=== PATIENT | male | born 1950 | race Caucasian/White ===

== ENCOUNTER 2018-06-16 06:11 | Inpatient (IN) | payer MEDICARE, OTHER ==
[2018-05-28 09:04] LABS: ABSOLUTE EOSINOPHILS 0.1 thou/uL (0.0-0.7); ABSOLUTE LYMPHOCYTES 1.4 thou/uL (0.8-5.3); ABSOLUTE MONOCYTES 0.4 thou/uL (0.0-1.2); ABSOLUTE NEUTROPHILS 2.2 thou/uL (1.6-8.1); BASOPHILS 0.9 %; EOSINOPHILS 1.6 %; HEMATOCRIT 41.1 % (42.0-52.0); HEMOGLOBIN 13.9 gm/dL (14.0-18.0); LYMPHOCYTES 33.6 %; MCH 29.8 pg (26.0-34.0); MCHC 33.8 g/dL (28.0-37.0); MCV 88.2 fL (80.0-100.0); MONOCYTES 9.1 %; MPV 6.9 fl. (7.2-11.1); NUCLEATED RBCS 0 /100WBC; PLATELET COUNT* 225 thou/uL (150-400); POLYS 54.8 %; RBC 4.66 mil/uL (4.50-6.00); RDW-CV 14.3 % (10.5-14.5); WBC 4.1 thou/uL (4.0-11.0)
[2018-05-28 09:12] LABS: APTT 26.7 Seconds (25.0-31.3); PROTIME 10.2 Seconds (9.20-11.50)
[2018-05-28 10:05] LABS: ALBUMIN 3.7 g/dL (3.4-5.0); CALCIUM 9.3 mg/dL (8.5-10.1); CREATININE 0.8 mg/dL (0.6-1.3); POTASSIUM 4.1 mmol/L (3.5-5.1); TOTAL BILIRUBIN 0.4 mg/dL (<0.1-1.0); TOTAL PROTEIN 7.3 g/dL (6.4-8.2)
[2018-05-28 11:14] LABS: ESR (SEDRATE) 4 mm/hr (0-20)
--- NOTE | 2018-05-28 16:41 | EKG ---
[place] [address] ELECTROCARDIOGRAM REPORT Name: PETE MAO Room: [facility].#: [id number] Admission: Attend Phys: Angel Dickerson DO Discharge: Date of : 50 Report #: [id number] THIS REPORT FOR: //name// [facility] Test Date: 2018-05-28 Test Time: 09:18:48 Pat Name: PETE MAO Department: Room: Gender: M Genetics Nurse: : 1950 Requested By: Angel Dickerson Order Number: [id number] Reading MD: Hiro Thomson Measurements Intervals [place] Rate: 65 P: 48 NC: 177 QRS: 47 QRSD: 96 T: 48 QT: 387 QTc: 403 Interpretive Statements Sinus rhythm Compared to ECG 05/22/2016 08:39:13 No significant changes Electronically Signed On 05-28-2018 16:41:13 HOSPITAL STAFF PHARMACIST by Hiro Thomson [email or web address] <ELECTRONICALLY SIGNED> By: Hiro Thomson MD, [facility] 05/28/18 1641 0918 09 Hiro Thomson MD, FACC /EPI
[2018-05-28 21:13] LABS: GLYCOHEMOGLOBIN (HGB A1C) 5.7 % (4.8-5.6)
[~2018-06-16] VITALS: Ht 172.7 cm; Wt 104.3 kg
--- NOTE | ~2018-06-16 | OP ---
[address] [address] OPERATIVE REPORT Name: PETE MAO Room: [address] IN M.R.#: [id number] Admission: 06/16/18 Attend Phys: Barbara Alva Discharge: Date of : 50 Report #: [id number] THIS REPORT FOR: //name// CC: Angel So DATE OF SERVICE: 06/16/2018 PREOPERATIVE DIAGNOSIS: Left knee degenerative joint disease, advanced. POSTOPERATIVE DIAGNOSIS: Left knee degenerative joint disease, advanced. PROCEDURE: Left total knee arthroplasty. SURGEON: Angel Dickerson DO. PRODUCTION SUPV: 1. Luke Chatterjee DO 2. Rickey Green DO ANESTHESIA: General and preoperative block. ANTIBIOTICS: Ancef IV preoperatively. ESTIMATED BLOOD LOSS: 100 mL. FLUIDS: 850 mL lactated Ringer's. COMPLICATIONS: None. SPECIMENS: None. DRAINS: None. CONDITION: The patient is stable to PACU. IMPLANTS: Sergio Persona knee, size 10 femur, G tibia, 11 mm polyethylene medial congruent, 35 mm all polyethylene pegged patella, Palacos cement. INDICATIONS FOR PROCEDURE: The patient is a 68-year-old male who presented to [facility] for left total knee arthroplasty. Long conversation was had with his who was present and him regarding plan for surgery and what risks and complications entailed, please see previous notes for full details of our discussion we had not only then, but today as well. They acknowledged and accepted the risks and complications. We obtained verbal and [address] [place] [address] OPERATIVE REPORT Name: PETE MAO Room: [address] ADM IN M.R.#: [id number] Admission: 06/16/18 Attend Phys: Barbara Alva Discharge: Date of : 50 Report #: [id number] written consent to proceed. DESCRIPTION OF PROCEDURE: I marked the left lower extremity in the presence of the operative team members, everyone agreed this was correct. Anesthesia performed their preoperative block. He was then taken back to the operative suite where a briefing was performed indicating correct patient, procedure, site, antibiotics and that implants were present and sterile. All team members agreed. He was transferred over to the operative table in supine position, well padded and secured. General anesthetic was administered. A well-padded tourniquet was placed proximally on the left lower extremity, which was then sterilely prepped and draped in standard fashion. Timeout was performed indicating correct patient, procedure, site, antibiotics and that implants were present and sterile. All team members agreed. We marked out our incision longitudinal in line and standard for total knee arthroplasty. Scalpel was taken through skin, careful soft tissue dissection was maintained and hemostasis was maintained as well as we were doing this aspect tourniquet less. We elevated only appropriate flaps that were necessary and these were full thickness. Second scalpel was used to perform a medial parapatellar arthrotomy, medial sleeve, incised fat pad that was visible. Everted the patella, put the knee into flexion, excised fat pad so that we could gain access to the lateral condyle, which we could. Medially we were able to get a Hohmann retractor. Drill was then inserted in the appropriate position into the canal of the femur and then the guide was inserted intramedullary, pinned into the appropriate position paralleling the condyles. He had a little bit of a preoperative flexion contracture. We therefore took an extra millimeter off of the distal end of the tibia. With that pinned into position we checked with aminata wing. We then used an oscillating saw to perform that cut. We then turned our attention to the tibia leaving those pins in place in the femur. Our external aiming guide was appropriate along the tibial crest, down the ankle and talus, in the appropriate position using a 10 off of the high side and checked with an aminata wing. We pinned this into position, checked with a drop pepe, it was appropriate. We then placed a third pin, used the oscillating saw to perform that cut, removed the excess bone and any soft tissue attachments and menisci that we could see. We then took the knee into extension and our collaterals were fully intact and maintained and placed our spacer block. Spacer block had full extension and good support in varus and valgus. At that point in time, we removed the pins, turned our attention to measuring the femur. The femur was sized to be a 10. The size was between 9 and 10; however, 9 was felt to be too small and we went with the larger size of the 10. We drilled this into the appropriate position of external rotation as judged by Whitesides line and the epicondylar axis. This block had a guide in the center of it for a drill pin and we confirmed by placing this and it was exiting appropriately showing the cut would be appropriate. It was taking a little more medial than lateral on the posterior condyles as well based on visual check, which was appropriate. We then pinned it into position, confirmed with aminata wing the appropriateness of the cut, which it was. Oscillating saw was used to [place] [address] OPERATIVE REPORT Name: PETE MAO Room: [address] IN [facility]#: [id number] Admission: 06/16/18 Attend Phys: Barbara Alva Discharge: Date of : 50 Report #: [id number] removed the trial block and the pins. At that point in time, we then placed a spacer block with flexion and this was an equal and rectangular gap with appropriate stability. At this point in time, we then placed our tibial trial. It was sized to a G. Using external aiming guide, we then pinned it into position. Femur was placed in appropriately lateralized position and was sitting nicely. We started off with a 10 mm trial. This had full extension, full flexion, just a little bit of play in regards to varus and valgus. We therefore upsized to an 11. This had excellent balancing and excellent stability throughout all planes including varus, valgus and mid flexion, very stable knee. We then turned our attention to the patella. We used the caliper to measure, it measured at 26 mm. We knew that he would most likely be sizing near a 35 and for sizing of 35 we knew he would need to take 8-9 mm of the cut. We therefore freehand cut the patella, used out calipers after the cut was performed showing that we had taken off approximately 9 mm of bone. We then sized to a 35, medialized our positioner, drilled the peg through that, placed our trial patellar component. At this point in time, all components were in place. We took the knee through range of motion. We had excellent tracking of the patella, excellent stability of all components, full flexion, full extension and excellent stability throughout all planes including varus, valgus and mid flexion. At this point in time, we then removed our patellar component, drilled the pegs within the femur, removed that component, used the tibial guide as our guide for keel, drill and punch. We removed all trial components at that point in time, thoroughly irrigated with normal saline. At this point in time, we performed our implant timeout where we confirmed final implants and they were thrown on to the back table. We esmarched the extremity at this point in time and went up with tourniquet to 290 mmHg, repositioned our knee, thoroughly irrigated with pulsatile lavage, got to a clean, dry on both surface. Cement was being appropriately mixed on the back table, which was then placed onto the tibia. The backside of the tibial component malleted into position including secondary impactor, removed excess cement. Same exact procedure was performed for the femur, which sat down nicely and excess cement removed. Same procedure was also performed for the patella with a patellar clamp placed. We compressed with an 11 mm trial spacer. Once the cement had fully cured, we then let down the tourniquet. Total tourniquet time was 28 minutes. We took the knee through range of motion, trialing at 10, 11 and a 12 spacer. The 12 spacer was a little tight going into flexion and the trial component was lifting off and was a little tight through mid flexion, also was lacking some extension. We therefore trialed the 11. The 11 had excellent stability throughout all planes including varus, valgus and mid flexion and had full extension and full flexion. This was determined to be the final polyethylene size. The implant timeout was performed and that was thrown on the back table. We thoroughly irrigated the knee, searched for any excess cement, which was removed. Dried off our tibial baseplate. The final polyethylene was inserted and engaged to be clicked in and confirmed to be appropriate. We reduced the knee with all final components in place and took through range of motion with all final components in place. We had full extension, full flexion, and excellent [place] [address] OPERATIVE REPORT Name: PETE MAO Room: [address] [facility]#: [id number] Admission: 06/16/18 Attend Phys: Barbara Alva Discharge: Date of : 50 Report #: [id number] including varus, valgus, mid flexion and the patella was tracking excellently. We thoroughly irrigated the surgical site with normal saline, injected our orthopedic cocktail, reirrigated with normal saline and then closed our capsule and quad tendon with #1 Vicryl [id number] interrupted and oversewn with a #1 Stratafix, irrigated the subcutaneous layer with normal saline and closed this with a 2-0 Monocryl buried deep and a running 3-0 Stratafix suture with Dermabond glue over the skin. Debriefing was performed where we confirmed the procedure, blood loss and that all counts were correct and final. All team members agreed. A silver impregnated Mepilex dressing was applied and he was extubated and transferred off the operative table and taken to PACU stable. POSTOPERATIVE COURSE AND EVALUATION: I spoke with his per his wishes, addressed any questions she had. She was very thankful for my time and efforts. He was resting in PACU. Stable vital signs. Neurovascularly, he was intact distally in the left lower extremity. Compartments were soft and compressible. Dressing was clean, dry and intact. He is to be admitted. DVT prophylaxis will be pharmacological and mechanical. PT, OT, weightbear as tolerated, range of motion encouraged, and we will begin working on this immediately. PACU films showed stable prosthesis, no fracture or dislocation. By: 11 [id number] Dickerson DO /nt
[~2018-06-16 06:11] MED LIST: ASPIR 8181 MG PO; AUGMENTIN 875875 MG PO; FISH OIL 1,001000 M2 PO; IBUPROFEN 800800 M1 PO; LOVASTATIN 20 M20 MG PO; MIDODRINE HCL 55 M1 PO; NEOSPORIN28 GM TP; OMEPRAZOLE20 M2 PO; TRIPLE ANTIBIOT28 G1 TP; VITAMIN D2000 UNIT PO
[2018-06-16 07:09] VITALS: BP 134/73
[2018-06-16 12:57] VITALS: BP 109/67
--- NOTE | 2018-06-16 13:03 | NUR ---
EDIN ARRIVED ON UNIT FROM PACU AT 1250. COMPLETED ADMISSION ASSESSMENT. VITAL SIGNS AND SPO2 STABLE. CAPNO IN PLACE. IV CLEAN, FLUIDS INFUSING. PATIENT DENIES PAIN AT THIS TIME. TEDS, FOOT SCD'S IN PLACE. EDUCATED PATIENT TO ROOM, CALL LIGHT, AND FALL RISKS. PATIENT VERBALIZED UNDERSTANDING. COMPLETED HOURLY ROUDING. CALL LIGHT WITHIN REACH, WILL CONTINUE TO MONITOR.
[2018-06-16 16:00] VITALS: BP 116/62
[2018-06-16 19:20] VITALS: BP 104/59
--- NOTE | 2018-06-16 19:53 | NUR ---
PATIENT REMAINED ALERT AND ORIENTED X'S 4. VITAL SIGNS AND SPO2 STABLE. IV CLEAN,FLUSHING. PAIN WELL CONTROLLED WITH PO MEDS. ICE PACK ON KNEE. TEDS, SCD'S IN PLACE. CAPNO IN PLACE. PATIENT TOLERATED DIET, NO NAUSEA AND VOMITING. COMPLETED HOURLY ROUNDING. CALL LIGHT WITHIN REACH. WILL CONTINUE TO MONITOR.
--- NOTE | 2018-06-16 23:20 | NUR ---
INITAL ASSESMENT COMPLETED AT 1920. PT IN RECLINER AT THAT TIME VISITING WITH FAMILY. PT HAS O2 AT 3 LITERS WITH CAPNOGRAPHY DURING SHIFT. PT TOLERATING PO FOOD AND FLUIDS, NO NAUSEA OR VOMITING. PT ASSISTED BACK TO BED WITH ASSIST X2 GETTING TO STANDING POSITION. PT THEN USED WALKER T PIVOT AND TRANSFER TO BED. CALL LIGHT IN REACH. PT INSTRUCTED TO CALL FOR ASSISTANCE. PT DEMONSTRATES PROPER USE.
[2018-06-17 00:30] VITALS: BP 103/56
[2018-06-17 04:19] VITALS: BP 101/61
[2018-06-17 04:49] LABS: HEMOGLOBIN 12.2 gm/dL (14.0-18.0)
--- NOTE | 2018-06-17 06:01 | NUR ---
PT PROGRESSING TOWARD GOALS DURING SHIFT. PT UP WITH ASSIST TO CHAIE THEN BACK TO BED AT START OF SHIFT. PT'S PAIN CONTROLLED WITH PO MEDS. VITAL SIGNS WITHIN NORMAL LIMITS. NO ACUTE CHANGES DURING SHIFT. WILL CONTINUE PLAN OF CARE.
[2018-06-17 12:11] VITALS: BP 105/60
--- NOTE | 2018-06-17 12:48 | NUR ---
RECIEVED O.T. ORDERS. WILL DEFER TO P.T. AND NURSING THIS TIME. PLEASE ORDER FURTHER O.T. SERVICES IF NEEDED.
[2018-06-17 15:46] VITALS: BP 122/50
--- NOTE | 2018-06-17 16:16 | NUR ---
SPOKE WITH PT.AND . WILL BE WITH HIM WHEN HE GOES HOME. HE WILL NEED A FRONT WHEELED WALKER. HE IS NORMALLY INDEPENDENT AT HOME. DISCUSSED CPM. HE IS AWARE CO[employer] WHEN HE IS FINISHED WITH IT. HE HAS BEEN USING [facility] OUPT.THERAPY BUT WOULD LIKE TO DO HOME HEALTH FOR FIRST 2 WEEKS. HE [facility]OSE [facility]. WILL SEND REFERRAL. CM CALLED IN PRESCIPTION FOR EL[facility] $218. INFORMED PT. HE SAID HE IS SURE THAT SOME OF IT IS HIS COPAY. HE WILL BE ABLE TO AFFORD IT.
[2018-06-17 16:20] VITALS: BP 122/50
--- NOTE | 2018-06-17 18:10 | NUR ---
PT REMAINED ALERT AND ORIENTED. PT COMPLAINED OF PAIN, MEDS GIVEN ORDERED. PT WORKED WITH THERAPY TODAY, WILL WORK ON STAIRS TOMORROW. FALL RISK PRECAUTIONS IN PLACE. HOURLY ROUNDING COMPLETED. WILL CONTINUE TO MONITOR.
[2018-06-17 20:00] VITALS: BP 117/59
[2018-06-18] VITALS: BP 123/62
--- NOTE | 2018-06-18 06:22 | NUR ---
Alert and oriented x 4. He has had pain meds x 3 this shift. L knee dressing is dry and intact with ice bags. He was in the CPM last evening 0-60. He rates his pain the last time at 3. He is voiding well and passed gas. Vitals are stable. He has slept well.
[2018-06-18 08:30] VITALS: BP 120/63
[2018-06-18] MEDS ORDERED: HYDROCODON-ACE1 EAC7 PO (09:50)
[2018-06-18] MEDS ORDERED: OXYCODONE HCL 55 MG PO (09:50)
[2018-06-18] MEDS ORDERED: ELIQUIS5 MG PO (09:50)
--- NOTE | 2018-06-18 10:49 | NUR ---
OBTAINED WALKER ORDER FOR FRONT WHEELED WALKER FOR PT.FOR HOME. VERIFIED WITH [employer] THAT IT WAS OK TO DISPENSE ONE TO PT. ORDER GIVEN TO THERAPY. FAXED ORDER TO [employer]. FAXED DISCHARGE SUMMARY,ORDERS AND FACE SHEET TO [facility] AND SPOKE WITH [employer]IST[employer] DIRECTOR. SHE VERIFIED RECEIVING THEM. FAXED COMPLETED [facility] TO [facility] [phone] PER PT.REQUEST. RETURNED PAPERS TO HIM. PT.UNDERSTOOD DISCHARGE PLANS.
[2018-06-18 14:39] VITALS: BP 122/50
[2018-06-18] MEDS ORDERED: ASPIRIN325 PO (14:50)
[2018-06-18 14:53] VITALS: BP 122/50
--- NOTE | 2018-06-18 16:27 | NUR ---
PATIENT LEFT UNIT AT 1535. ALERT AND ORIENTED X4. UP WITH ASSIST X1 WITH WALKER AND GAIT BELT. IV DC'D. PAIN BEING MANAGED WITH PO PAIN MEDICATION. DENIES NAUSEA. ATTENDED THERAPY THIS AM AND PM. CPM 0-60 THIS AM X2 HOURS. ALL PERSONAL ITEMS LEFT WITH PATEINT. DISCHARGE INSTRUCTIONS, PRESCRIPTIONS, AND NEW MEDICATION INFORMATION SENT WITH PATIENT. VSS ON ROOM AIR. HOURLY ROUNDS HAVE BEEN MAINTAINED THROUGHOUT SHIFT. LEFT WITH SPOUSE VIA CAR.
[2018-06-18 17:18] VITALS: BP 122/50
--- NOTE | 2018-06-18 17:18 | NUR ---
RN HAS REVIEWED AND AGREES WITH STUDENT NURSES CHARTING.
--- NOTE | 2018-06-18 17:53 | NUR ---
RN HAS REVIEWED AND AGREES WITH STUDENT NURSES CHARTING.
== END 2018-06-18 15:35 | disposition home health service (06) | DRG 470 ==
LOC: M.SUR 06:11 → M.ORTHSURG 10:53 → M.SUR 14:27 → M.ORTHSURG 06-18 15:35
PROVIDERS: Orthopaedic Surgery; ADMIT Internal Medicine
PROC: 0SRD0J9 Replacement of Left Knee Joint with Synthetic Substitute, Cemented, Open Approach (ICD-10-PCS; principal; 2018-06-16)
DX: M17.12 Unilateral primary osteoarthritis, left knee (principal); K21.9 Gastro-esophageal reflux disease without esophagitis; E78.00 Pure hypercholesterolemia, unspecified; E89.0 Postprocedural hypothyroidism; E20.9 Hypoparathyroidism, unspecified; G47.33 Obstructive sleep apnea (adult) (pediatric); Z79.82 Long term (current) use of aspirin; Z79.899 Other long term (current) drug therapy; Z87.891 Personal history of nicotine dependence; Z98.42 Cataract extraction status, left eye; Z98.41 Cataract extraction status, right eye

== ENCOUNTER → 2018-08-24 | Day surgery (SDC) | payer MEDICARE, OTHER ==
[~2018-08-24] MED LIST changes: +ASPIRIN325 PO; +ELIQUIS5 MG PO; +HYDROCODON-ACE1 EAC7 PO; +MULTIVITAMINS1 EAC7 PO; +NORCO 5-325 TA1 EACH PO; +OXYCODONE HCL 55 MG PO; +VITAMINC500 PO
--- NOTE | ~2018-08-24 | OP ---
[address] [address] OPERATIVE REPORT Name: PETE MAO Room: [facility].#: [id number] Admission: 08/24/18 Attend Phys: Angel Dickerson DO Discharge: Date of : 50 Report #: [id number] THIS REPORT FOR: //name// CC: Angel Brady PREOPERATIVE DIAGNOSIS: Arthrofibrosis, left knee. POSTOPERATIVE DIAGNOSIS: Arthrofibrosis, left knee. PROCEDURE: Manipulation under anesthesia, left knee. SURGEON: Angel Dickerson DO. ALTERATIONS SEWER: Angel Dorado DO ANESTHESIA: General. ANTIBIOTICS: None. ESTIMATED BLOOD LOSS: None. FLUIDS: 650 mL lactated Ringer's. COMPLICATIONS: None. SPECIMENS: None. DRAINS: None. CONDITION: The patient is stable to PACU. INDICATIONS FOR PROCEDURE: The patient presents to [facility] for manipulation under anesthesia in his left knee. We have had multiple conversations regarding the plan for the surgery as well as the associated risks and complications. Please see previous notes for full details of our discussion at multiple visits. He wished to proceed and gave consent. DESCRIPTION OF PROCEDURE: I marked the left lower extremity in the presence of the operative team members and everyone agreed this was correct. He was taken back to the operative suite where a briefing was performed where we confirmed the correct patient, procedure and site. All team members agreed. He was transferred to the operative table in supine position, well padded and secured. General anesthetic administered. Timeout performed where we indicated the correct patient, procedure and site. All team members agreed. We began by comparing to his other extremities. In regards to extension, he is basically the same. In regards to the right and where he was at preoperatively lacking a [address] [address] OPERATIVE REPORT Name: PETE MAO Room: [facility].#: [id number] Admission: 08/24/18 Attend Phys: Angel Dickerson DO Discharge: Date of : 50 Report #: [id number] couple degrees of extension and flexion. We were able to manipulate the knee, broke down on some scar tissue anteriorly and get him back to 130 degrees of flexion. It should be noted that he gave us permission to take images, and we took pictures of this so that we could show him and his . We held that position to keep a stretch going and after that he was previously mobile, but lacking 1-2 degrees of extension all the way back to 130 degrees flexion easily with no blocked motion or trouble. At that point in time, we took flat plate images of the knee, which showed no fracture, and the components were in good position and alignment. No evidence of dislocation. We debriefed where we confirmed the procedure. Multiple members agreed. He was extubated and transferred on the operating table, taken to PACU, stable. POSTOPERATIVE COURSE AND EVALUATION: I spoke with his , showed the images per his permission, addressing questions. She is very thankful for my time and efforts. He was resting in the PACU, stable vital signs, pain control. Neurovascularly he is intact in that extremity with no change compared to preoperative exam. Weightbear as tolerated in the yard. He has a therapy appointment scheduled for today, and he is going to continue therapy sessions with the range of motion goals as discussed previously. They have access to my personal number, and I have encouraged them to call if they have any questions or concerns. By: [id number] Dickerson DO /ophelia
[2018-08-24 06:23] LABS: HEMATOCRIT 38.4 % (42.0-52.0); HEMOGLOBIN 12.9 gm/dL (14.0-18.0); MCH 29.3 pg (26.0-34.0); MCHC 33.6 g/dL (28.0-37.0); MPV 6.8 fl. (7.2-11.1); RBC 4.41 mil/uL (4.50-6.00); RDW-CV 13.7 % (10.5-14.5); WBC 5.6 thou/uL (4.0-11.0)
[2018-08-24 06:34] LABS: CALCIUM 9.2 mg/dL (8.5-10.1); CREATININE 0.9 mg/dL (0.6-1.3); POTASSIUM 3.7 mmol/L (3.5-5.1)
== END | disposition home or self-care (01) ==
LOC: M.SUR 06:06
PROVIDERS: Orthopaedic Surgery
DX: M24.662 Ankylosis, left knee (principal); Z96.652 Presence of left artificial knee joint; Z79.899 Other long term (current) drug therapy; Z79.891 Long term (current) use of opiate analgesic; Z98.890 Other specified postprocedural states

== ENCOUNTER → 2019-03-10 | Outpatient (CLI) | payer MEDICARE, OTHER | LOC: M.ULTRA 09:15 | DX: Z13.6 Encounter for screening for cardiovascular disorders (principal); Z88.8 Allergy status to other drugs, medicaments and biological substances ==

== ENCOUNTER → 2021-02-28 | Outpatient (CLI) | payer OTHER | LOC: M.MRI 02-23 14:30 | DX: S66.811A Strain of other specified muscles, fascia and tendons at wrist and hand level, right hand, initial encounter (principal); M77.11 Lateral epicondylitis, right elbow; X58.XXXA Exposure to other specified factors, initial encounter; Y93.89 Activity, other specified; Y92.89 Other specified places as the place of occurrence of the external cause; Y99.8 Other external cause status ==